=== PATIENT | female | born 1950 | race Two or more races ===

== ENCOUNTER 2023-11-14 16:15 | Outpatient (CLI) | payer OTHER | END 2023-11-14 16:21 | disposition home or self-care (01) | LOC: RAD 16:15 | PROVIDERS: ATTEND Orthopaedic Surgery | DX: M25.511 Pain in right shoulder (principal) ==

== ENCOUNTER 2023-11-21 08:20 | Outpatient (CLI) | payer OTHER | END 2023-11-21 08:23 | disposition home or self-care (01) | LOC: RAD 08:20 | PROVIDERS: ATTEND Orthopaedic Surgery | DX: S42.231A 3-part fracture of surgical neck of right humerus, initial encounter for closed fracture (principal) ==

== ENCOUNTER 2023-12-05 13:35 | Outpatient (CLI) | payer OTHER | END 2023-12-05 13:44 | disposition home or self-care (01) | LOC: RAD 13:35 | PROVIDERS: ATTEND Orthopaedic Surgery | DX: S42.231A 3-part fracture of surgical neck of right humerus, initial encounter for closed fracture (principal) ==

== ENCOUNTER 2023-12-25 12:35 | Outpatient (CLI) | payer OTHER | END 2023-12-25 12:41 | disposition home or self-care (01) | LOC: RAD 12:35 | PROVIDERS: ATTEND Orthopaedic Surgery | DX: M25.561 Pain in right knee (principal); M25.562 Pain in left knee; M25.551 Pain in right hip; M25.552 Pain in left hip ==